=== PATIENT | female | born 1950 | race Two or more races ===

== ENCOUNTER 2023-11-26 21:22 | Emergency (ER) | payer MEDICARE ==
[~2023-11-26] VITALS: Ht 157.5 cm; Wt 52.3 kg
[2023-11-26 22:04] VITALS: TEMP 98.2
[2023-11-26 23:19] LABS: BASOPHILS % (AUTO) 0.6 % (0.0-2.0); EOSINOPHILS % (AUTO) 1.6 % (1.0-6.0); HEMATOCRIT 38.2 % (36-46); HEMOGLOBIN 12.6 g/dL (12.0-16.0); LYMPHOCYTES # (AUTO) 2.3 K/uL (1.0-4.8); LYMPHOCYTES % (AUTO) 33.8 % (22.0-44.0); MEAN CORPUSCULAR HGB CONC 33.1 G/dL (31.0-37.0); MEAN CORPUSCULAR VOLUME 94 fL (80-100); MONOCYTES # (AUTO) 0.7 K/uL (0.1-1.0); MONOCYTES % (AUTO) 10.7 % (2.0-9.0); NEUTROPHILS # (AUTO) 3.6 K/uL (1.8-7.7); NEUTROPHILS % (AUTO) 53.3 % (40.0-70.0); PLATELET COUNT (AUTO) 214 K/uL (150-450); RED BLOOD CELL COUNT(AUTO) 4.07 MIL/uL (4.00-5.20); RED CELL DISTRIBUTION WIDTH 13.7 % (11.5-14.5); WHITE BLOOD COUNT (AUTO) 6.8 K/uL (4.5-11.0)
[2023-11-26 23:28] LABS: CALCIUM, TOTAL 8.8 mg/dL (8.8-10.5); CREATININE 1.04 mg/dL (0.60-1.30); POTASSIUM 4.4 mmol/L (3.5-5.1)
[2023-11-27 01:10] VITALS: BP 124/77; PULSE 71; RESP 14
[2023-11-27] MEDS: CEPHALEXIN MONOHYDRATE 500 MG CAPSULE PO ONE (01:23)
[2023-11-27] MEDS: SULFAMETHOX/TRIMETH DS 800-160 MG/TABLET PO ONE (01:23)
[2023-11-27] MEDS ORDERED: SULF-261 PO (01:41)
[2023-11-27] MEDS ORDERED: CEPH-558 PO (01:41)
== END 2023-11-27 01:49 | disposition home or self-care (01) ==
LOC: EMS 21:22
DX: R59.0 Localized enlarged lymph nodes (principal)
CPT/HCPCS: 80048; 85025; 99283